=== PATIENT | female | born 1950 | race Caucasian/White ===

== ENCOUNTER 2016-11-15 10:01 | Emergency (ER) | payer OTHER ==
[~2016-11-15] VITALS: Ht 167.6 cm; Wt 84.5 kg
[~2016-11-15 10:01] MED LIST: Arthrotec 75 PO; Duragesic TD; LYRICA50 MG PO; Levaquin PO; Percocet 5/325,Endoc PO; Tylenol Regular Stre PO; WELCHOL625 MG PO; ZANAFLEX4 M1 PO; Zestoretic,Prinzide PO; Zoloft PO
[2016-11-15 12:25] LABS: HEMATOCRIT 37.3 % (36.0-46.0); MCH 27.9 PG (29.0-34.0); MCHC 32.2 G/DL (30.0-36.0); MCV 86.7 FL (83-99); PLATELET COUNT 266 K/uL (156-360); RBC DIS.WIDTH-CV 14.9 % (11.8-14.6); RBC DIS.WIDTH-SD 47.7 % (39-53); WHITE BLOOD COUNT 7.6 K/uL (4.1-10.2)
[2016-11-15 12:43] LABS: CHLORIDE 105 mEq/L (99-109); POTASSIUM 4.6 mEq/L (3.7-5.4); SODIUM 139 mEq/L (136-147)
[2016-11-15 12:45] LABS: GLUCOSE 96 mg/dL (70-99)
[2016-11-15 12:47] LABS: ANION GAP 12 MEQ/L (2-14); TOTAL BILIRUBIN 0.4 mg/dL (0.0-1.0)
[2016-11-15 12:49] LABS: ALKALINE PHOSPHATASE 65 IU/L (3-129); GFR ESTIMATE (CALCULATED) > 59 mL/min/
[2016-11-15 12:50] LABS: UREA NITROGEN (BUN) 24 mg/dL (9-23)
[2016-11-15] MEDS ORDERED: LORTAB 5-325 M1 EACH PO (13:33)
[2016-11-15 13:50] VITALS: BP 142/92
[2016-11-17] MEDS ORDERED: VOLTAREN75 MG PO (15:09)
[2016-11-17] MEDS ORDERED: WELCHOL625 MG PO (15:09)
[2016-11-17] MEDS ORDERED: LYRICA150 MG PO (15:10)
[2016-11-17] MEDS ORDERED: LISINOPRIL-HCT1 EACH PO (15:18)
[2016-11-17] MEDS ORDERED: MOVANTIK25 MG PO (15:19)
[2016-11-17] MEDS ORDERED: LEVO-T25 MCG PO (15:19)
[2016-11-17] MEDS ORDERED: SERTRALINE HCL50 MG PO (15:19)
[2016-11-17] MEDS ORDERED: DITROPAN XL5 MG PO (15:19)
[2016-11-17] MEDS ORDERED: ERGOCALCIF50000 UNIT PO (15:20)
[2016-11-17] MEDS ORDERED: FENTANYL1 EAC1 TD (15:20)
[2016-11-17] MEDS ORDERED: ENDOCET 10-3251 EACH PO (15:21)
== END 2016-11-15 13:51 | disposition home or self-care (01) ==
LOC: EME 10:01
PROVIDERS: Nurse Practitioner Family
PROC: 0H9LXZZ Drainage of Left Lower Leg Skin, External Approach (ICD-10-PCS; principal; 2016-11-15)
DX: L02.416 Cutaneous abscess of left lower limb (principal); I10 Essential (primary) hypertension; Z98.1 Arthrodesis status
CPT/HCPCS: 73610; 80053; 85027; 99281; 99284; J0696; J7030; J7050

== ENCOUNTER → 2017-05-06 | Outpatient (CLI) | payer OTHER ==
[~2017-05-06] MED LIST changes: +DITROPAN XL5 MG PO; +ENDOCET 10-3251 EACH PO; +ERGOCALCIF50000 UNIT PO; +FENTANYL1 EAC1 TD; +LEVO-T25 MCG PO; +LISINOPRIL-HCT1 EACH PO; +LORTAB 5-325 M1 EACH PO; +LYRICA150 MG PO; +MOVANTIK25 MG PO; +SERTRALINE HCL50 MG PO; +VOLTAREN75 MG PO
== END | disposition home or self-care (01) ==
DX: R26.2 Difficulty in walking, not elsewhere classified (principal); M25.561 Pain in right knee; M25.661 Stiffness of right knee, not elsewhere classified; M17.11 Unilateral primary osteoarthritis, right knee; M62.81 Muscle weakness (generalized); Z74.1 Need for assistance with personal care
CPT/HCPCS: 97161 GP; 97165 GO; 97530 GP; 97537 GO; G8978 GP; G8979 GP; G8980 GP; G8987 GO; G8988 GO; G8989 GO

== ENCOUNTER 2017-06-09 22:12 | Inpatient (IN) | payer OTHER ==
[~2017-06-09] VITALS: Ht 167.6 cm; Wt 95.1 kg
[~2017-06-09 22:12] MED LIST changes: +CELEBREX200 MG PO; -LEVO-T25 MCG PO; +LEVO-T88 MCG PO; +MELATONIN5 M1 PO
[2017-06-10 08:51] VITALS: BP 170/79
[2017-06-10 15:02] LABS: HEMATOCRIT 33.2 % (36.0-46.0); MCH 29.8 PG (29.0-34.0); MCHC 32.5 G/DL (30.0-36.0); MCV 91.7 FL (83-99); MEAN PLAT.VOLUME 9.6 uM^3 (9.5-12.4); PLATELET COUNT 188 K/uL (156-360); RBC DIS.WIDTH-CV 12.1 % (11.8-14.6); RBC DIS.WIDTH-SD 41.1 % (39-53); RED BLOOD COUNT 3.62 M/uL (3.80-5.20); WHITE BLOOD COUNT 4.2 K/uL (4.1-10.2)
[2017-06-10 20:14] VITALS: BP 187/81
[2017-06-10 23:18] VITALS: BP 117/65
[2017-06-11 05:21] VITALS: BP 136/66
[2017-06-11 06:19] LABS: HEMATOCRIT 31.5 % (36.0-46.0); MCV 91.8 FL (83-99)
[2017-06-11 06:40] LABS: ANION GAP 10 MEQ/L (2-14); CHLORIDE 104 MEQ/L (99-109); GFR ESTIMATE (CALCULATED) 37 mL/min/; GLUCOSE 136 mg/dL (70-99); SAMPLE HEMOLYSIS CHECK 0; SAMPLE ICTERIC CHECK 0; SAMPLE LIPEMIA CHECK 0; SODIUM 134 MEQ/L (136-147); UREA NITROGEN (BUN) 21 mg/dL (9-23)
[2017-06-11 08:04] VITALS: BP 140/58
[2017-06-11 11:38] VITALS: BP 107/51
[2017-06-11 15:31] VITALS: BP 149/66
[2017-06-12 00:20] VITALS: BP 156/89
[2017-06-12 06:10] LABS: HEMATOCRIT 27.3 % (36.0-46.0); MCV 88.6 FL (83-99)
[2017-06-12 07:55] VITALS: BP 128/59
[2017-06-12 15:58] VITALS: BP 140/80
== END 2017-06-12 17:12 | DRG 470 ==
LOC: ENRESERV 22:12 → 2SOUTH 06-10 08:18 → CANRESERV 06-10 17:01 → ENRESERV 06-10 17:01 → 3EAST 06-10 20:01
PROVIDERS: Orthopaedic Surgery
PROC: 0SRC0J9 Replacement of Right Knee Joint with Synthetic Substitute, Cemented, Open Approach (ICD-10-PCS; principal; 2017-06-10)
DX: M17.11 Unilateral primary osteoarthritis, right knee (principal); I10 Essential (primary) hypertension; E78.5 Hyperlipidemia, unspecified; E03.9 Hypothyroidism, unspecified; M79.7 Fibromyalgia; F32.9 Major depressive disorder, single episode, unspecified; G89.29 Other chronic pain; E55.9 Vitamin D deficiency, unspecified; G47.33 Obstructive sleep apnea (adult) (pediatric); Z96.662 Presence of left artificial ankle joint; E66.9 Obesity, unspecified; Z68.33 Body mass index [BMI] 33.0-33.9, adult; Z87.891 Personal history of nicotine dependence
CPT/HCPCS: 73560; 80048; 85014; 85018; 85027; 94799; C1713; C1776; J0690; J1170; J1650; J2250; J2405; J3010; J7050

== ENCOUNTER → 2017-08-15 | Outpatient (CLI) | payer OTHER | END | disposition home or self-care (01) | LOC: NUC 11:00 | PROC: CP1Z1ZZ Planar Nuclear Medicine Imaging of Musculoskeletal System, All using Technetium 99m (Tc-99m) (ICD-10-PCS; principal; 2017-08-15) | DX: M41.86 Other forms of scoliosis, lumbar region (principal); M47.896 Other spondylosis, lumbar region; M17.12 Unilateral primary osteoarthritis, left knee; M19.071 Primary osteoarthritis, right ankle and foot; Z96.651 Presence of right artificial knee joint; M25.472 Effusion, left ankle | CPT/HCPCS: 78306; A9503 ==

== ENCOUNTER 2017-08-19 06:39 | Outpatient (CLI) | payer OTHER | END 2017-08-20 11:59 | disposition home or self-care (01) | LOC: NUC 06:39 | DX: R93.7 Abnormal findings on diagnostic imaging of other parts of musculoskeletal system (principal); M25.472 Effusion, left ankle; G89.29 Other chronic pain; T84.7XXD Infection and inflammatory reaction due to other internal orthopedic prosthetic devices, implants and grafts, subsequent encounter | CPT/HCPCS: 78805; 78999; A9541; A9570; J1644 ==